=== PATIENT | male | born 1990 | race American Indian/Alaskan Native ===

== ENCOUNTER 2018-10-09 22:35 | Emergency (ER) | payer OTHER, MEDICAID ==
[2018-10-09 23:24] VITALS: BP 133/89; PULSE 70; RESP 14; TEMP 97.7; O2SAT 99
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
== END 2018-10-10 00:06 | disposition home or self-care (01) ==
LOC: C.ER 22:35
DX: M62.838 Other muscle spasm (principal); V89.2XXA Person injured in unspecified motor-vehicle accident, traffic, initial encounter